=== PATIENT | male | born 1970 | race Caucasian/White ===

== ENCOUNTER 2023-04-09 13:34 | Emergency (ER) | payer OTHER ==
[~2023-04-09] VITALS: Ht 165.1 cm; Wt 95.8 kg
[2023-04-09 13:56] VITALS: BP 141/80; PULSE 119; RESP 20; TEMP 98.8; O2SAT 97
[2023-04-09] MEDS: ACETAMINOPHEN 325 MG TAB PO ONE (15:00)
[2023-04-09] MEDS: NACL 0.9% 1,000 ML IV SCH (15:16)
[2023-04-09 15:32] LABS: ANION GAP 15.2 (8-16); CALCIUM 8.8 mg/dL (8.5-10.1); CARBON DIOXIDE 27.6 mmol/L (21-32); CREATININE 1.1 mg/dL (0.6-1.3); POTASSIUM 3.8 mmol/L (3.5-5.1)
[2023-04-09 15:34] LABS: BASOPHILS # (AUTO) 0.1 K/uL (0.00-0.22); BASOPHILS % (AUTO) 0.6 % (0.0-2.0); EOSINOPHILS # (AUTO) 0.1 K/uL (0-0.4); EOSINOPHILS % (AUTO) 0.8 % (0.0-4.0); HEMATOCRIT 39.9 % (36-52); HEMOGLOBIN 13.6 g/dL (12.0-18.0); LYMPHOCYTES # (AUTO) 3.4 K/uL (2.0-11.5); LYMPHOCYTES % (AUTO) 26.1 % (20.5-51.1); MEAN CORPUSCULAR HEMOGLOBIN 32 pg (27-31); MEAN CORPUSCULAR HGB CONC 34 g/dL (33-37); MEAN CORPUSCULAR VOLUME 93.6 fL (80-94); MONOCYTES # (AUTO) 1.3 K/uL (0.8-1.0); NEUTROPHILS % (AUTO) 62.5 % (42.2-75.2); PLATELET COUNT (AUTO) 252 K/uL (140-450); RED BLOOD CELL COUNT(AUTO) 4.26 MIL/uL (4.20-6.10); RED CELL DISTRIBUTION WIDTH 14.6 % (11.6-13.7); WHITE BLOOD COUNT (AUTO) 12.9 K/uL (4.8-10.8)
[2023-04-09 15:38] LABS: ALANINE AMINOTRANSFERASE 40 U/L (12-78); ALBUMIN 3.2 g/dL (3.4-5.0); ALKALINE PHOSPHATASE 79 U/L (50-136); ASPARTATE AMINOTRANSFERASE 28 U/L (15-37); BILIRUBIN,DIRECT 0.2 mg/dL (0.0-0.3); CREATINE KINASE, TOTAL 171 U/L (39-308); TOTAL PROTEIN, SERUM 8.2 g/dL (6.4-8.2)
[2023-04-09 15:43] LABS: LACTIC ACID 1.1 mmol/L (0.4-2.0)
[2023-04-09] MEDS: TETRACAINE HCL/PF 0.5% OPTH 4 ML BTL OP ONE (16:00)
[2023-04-09 16:24] LABS: FLU A ANTIGEN negative (NEGATIVE); FLU B ANTIGEN negative (NEGATIVE)
[2023-04-09] MEDS: NACL 0.9% 1,000 ML IV ONE (16:58)
[2023-04-09] MEDS: KETOROLAC 30 MG/ML VIAL IVP ONE (16:58)
[2023-04-09 17:28] LABS: APPEARANCE,URINE CLEAR (CLEAR); BILIRUBIN,URINE NEGATIVE (NEGATIVE); BLOOD, URINE NEGATIVE (NEGATIVE); COLOR,URINE YELLOW (YELLOW); LEUKOCYTE ESTERASE ,URINE NEGATIVE (NEGATIVE); NITRITE, URINE NEGATIVE (NEGATIVE); PROTEIN,URINE NEGATIVE (NEGATIVE); UGLUCOSE 1+ (NEGATIVE); UROBILINOGEN,URINE 0.2 EU/dL (0.2 - 1)
[2023-04-09] MEDS ORDERED: AMOX1TAB8 PO (17:55)
[2023-04-09] MEDS ORDERED: IBUP-2213 PO (17:55)
[2023-04-09 18:17] VITALS: BP 121/68; PULSE 100; RESP 19; TEMP 99.1; O2SAT 96
== END 2023-04-09 18:16 | disposition home or self-care (01) ==
LOC: MED 13:34
DX: B34.9 Viral infection, unspecified (principal); Z20.822 Contact with and (suspected) exposure to COVID-19; J06.9 Acute upper respiratory infection, unspecified; J32.9 Chronic sinusitis, unspecified; H53.8 Other visual disturbances; H11.003 Unspecified pterygium of eye, bilateral; I10 Essential (primary) hypertension; E11.9 Type 2 diabetes mellitus without complications; Z79.899 Other long term (current) drug therapy
CPT/HCPCS: 36415; 70450; 71045; 80048; 80076; 81003; 82550; 83605; 83880; 84484; 85025; 87040; 87086; 87426; 87804; 93005; 96361; 96374; 99285; J1885; J7030

== ENCOUNTER 2023-08-09 16:39 | Emergency (ER) | payer OTHER ==
[~2023-08-09] VITALS: Ht 165.1 cm; Wt 99.8 kg
[~2023-08-09 16:39] MED LIST: AMOX1TAB8 PO; IBUP-2213 PO
[2023-08-09 17:11] VITALS: BP 123/78; PULSE 100; RESP 18; TEMP 98.5; O2SAT 96
[2023-08-09 18:20] LABS: BASOPHILS % (AUTO) 0.4 % (0.0-2.0); EOSINOPHILS # (AUTO) 0.1 K/uL (0-0.4); EOSINOPHILS % (AUTO) 0.8 % (0.0-4.0); HEMATOCRIT 31.3 % (36-52); HEMOGLOBIN 10.7 g/dL (12.0-18.0); LYMPHOCYTES # (AUTO) 2.5 K/uL (2.0-11.5); LYMPHOCYTES % (AUTO) 25.5 % (20.5-51.1); MEAN CORPUSCULAR HEMOGLOBIN 33 pg (27-31); MEAN CORPUSCULAR HGB CONC 34 g/dL (33-37); MEAN CORPUSCULAR VOLUME 95.5 fL (80-94); MONOCYTES # (AUTO) 0.6 K/uL (0.8-1.0); MONOCYTES % (AUTO) 6.4 % (1.7-9.3); NEUTROPHILS # (AUTO) 6.7 K/uL (1.8-7.7); NEUTROPHILS % (AUTO) 66.9 % (42.2-75.2); PLATELET COUNT (AUTO) 376 K/uL (140-450); RED BLOOD CELL COUNT(AUTO) 3.28 MIL/uL (4.20-6.10); RED CELL DISTRIBUTION WIDTH 15.1 % (11.6-13.7)
[2023-08-09 18:36] LABS: ANION GAP 10.9 (8-16); CALCIUM 8.7 mg/dL (8.5-10.1); CARBON DIOXIDE 30.6 mmol/L (21-32); CREATININE 1.2 mg/dL (0.6-1.3); POTASSIUM 4.5 mmol/L (3.5-5.1)
[2023-08-09] MEDS ORDERED: CEPH-588 PO (19:29)
[2023-08-09] MEDS ORDERED: FURO-572 PO (19:29)
[2023-08-09 19:39] VITALS: BP 123/78; PULSE 100; RESP 18; TEMP 98.5; O2SAT 96
== END 2023-08-09 19:39 | disposition home or self-care (01) ==
LOC: MED 16:39
DX: R60.0 Localized edema (principal); R94.31 Abnormal electrocardiogram [ECG] [EKG]; L03.032 Cellulitis of left toe; E11.9 Type 2 diabetes mellitus without complications; I10 Essential (primary) hypertension; Z79.1 Long term (current) use of non-steroidal anti-inflammatories (NSAID); Z79.2 Long term (current) use of antibiotics; Z79.899 Other long term (current) drug therapy
CPT/HCPCS: 36415; 71045; 80048; 83880; 84484; 85025; 93005; 99285